=== PATIENT | female | born 2000 | race Hispanic/Latino ===

== ENCOUNTER 2021-08-15 01:07 | Emergency (ER) | payer OTHER ==
[~2021-08-15] VITALS: Ht 160 cm; Wt 57.2 kg
[2021-08-15 02:17] LABS: BASOPHILS % (AUTO) 0.7 % (0.0-5.0); EOSINOPHILS % (AUTO) 3.1 % (0.0-8.0); HEMATOCRIT 39.6 % (36-48); LYMPHOCYTES % (AUTO) 29.8 % (21.0-51.0); MEAN CORPUSCULAR HEMOGLOBIN 27.4 pg (27.0-33.0); MEAN CORPUSCULAR HGB CONC 32.1 g/dL (32.0-36.0); MEAN CORPUSCULAR VOLUME 85.3 fL (80-100); MONOCYTES % (AUTO) 10.5 % (3.0-13.0); NEUTROPHILS % (AUTO) 55.8 % (40.0-77.0); PLATELET COUNT (AUTO) 260 K/uL (130-400); RED BLOOD CELL COUNT(AUTO) 4.64 MIL/uL (4.00-5.50); RED CELL DISTRIBUTION WIDTH 13.8 % (11.0-15.5); WHITE BLOOD COUNT (AUTO) 7.1 K/uL (4.8-10.8)
[2021-08-15] MEDS ORDERED: ACETAMINOPHEN 500 MG TABLET PO ONE (02:30)
[2021-08-15] MEDS ORDERED: PRENATAL VITAMIN RX TABLET PO SCH (02:30)
[2021-08-15] MEDS ORDERED: MULTIVITAMIN TABLET ONE (02:33)
[2021-08-15 02:43] LABS: CREATININE 0.8 mg/dL (0.5-1.5); POTASSIUM 3.4 mmol/L (3.5-5.1)
[2021-08-15 02:54] LABS: ALBUMIN 4.1 g/dL (3.5-5.0); BILIRUBIN,TOTAL 0.3 mg/dL (0.2-1.0)
[2021-08-15 03:18] VITALS: BP 114/81
== END 2021-08-15 03:36 | disposition home or self-care (01) ==
LOC: EDH 01:07
DX: O03.9 Complete or unspecified spontaneous abortion without complication (principal); Z3A.01 Less than 8 weeks gestation of pregnancy
CPT/HCPCS: 36415; 76801; 80053; 84702; 85025; 86900; 86901

== ENCOUNTER 2021-12-28 15:14 | Emergency (ER) | payer OTHER ==
[~2021-12-28] VITALS: Ht 157.5 cm; Wt 56.7 kg
[2021-12-28] MEDS ORDERED: CYCLOBENZAPRINE HCL 10 MG TABLET PO ONE (15:30)
[2021-12-28] MEDS ORDERED: KETOROLAC 30MG VIAL (30MG/ML) IM ONE (15:30)
[2021-12-28 16:08] LABS: APPEARANCE,URINE CLOUDY (CLEAR); BILIRUBIN,URINE NEGATIVE (NEGATIVE); COLOR,URINE YELLOW (YELLOW); GLUCOSE, URINE (UA) NEGATIVE (NEGATIVE); KETONES,URINE NEGATIVE (NEGATIVE); LEUKOCYTE ESTERASE ,URINE MODERATE (NEGATIVE); NITRATE,URINE NEGATIVE (NEGATIVE); OCCULT BLOOD,URINE MODERATE (NEGATIVE); PROTEIN,URINE 100 mg/dL (NEGATIVE); UROBILINOGEN,URINE 0.2 mg/dL (0.2-1.0)
[2021-12-28 16:14] LABS: HCG,QUAL RESULT NEGATIVE (NEGATIVE)
[2021-12-28 16:16] LABS: WBC,URINE 51-100 /HPF (0-1)
[2021-12-28 16:17] LABS: BACTERIA,URINE Few /HPF (None Seen); SQUAMOUS EPITHELIAL CELL,UR Rare /HPF (0-2)
[2021-12-28] MEDS ORDERED: CEPH500B PO (16:39)
[2021-12-28] MEDS ORDERED: PHEN-847 PO (16:39)
[2021-12-28] MEDS ORDERED: CEFTRIAXONE 1G VIAL ONE (16:47)
[2021-12-28] MEDS ORDERED: LIDOCAINE HCL MPF 1% 5ML VIAL ONE (16:48)
[2021-12-28 16:59] VITALS: BP 110/71
[2021-12-28] MEDS ORDERED: CEFTRIAXONE 1G VIAL IM ONE (17:00)
== END 2021-12-28 17:23 | disposition home or self-care (01) ==
LOC: EDH 15:14
DX: N39.0 Urinary tract infection, site not specified (principal); M54.50 Low back pain, unspecified; Z79.1 Long term (current) use of non-steroidal anti-inflammatories (NSAID)
CPT/HCPCS: 72100; 81001; 81025; 87077; 87088; 87186; 96372; 99284; J0696; J1885; J3490